=== PATIENT | male | born 1975 | race Caucasian/White ===

== ENCOUNTER 2018-06-18 05:33 | Day surgery (SDC) | payer OTHER ==
[~2018-06-18] VITALS: Ht 180.3 cm; Wt 56.7 kg
--- NOTE | ~2018-06-18 | O ---
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 PROCEDURE: Bilateral extensive lateral tarsorrhaphy. SURGEON: Tony James M.D. HUMAN RESOURCES RECRUITER: None. ANESTHESIA: MAC. COMPLICATIONS: None. 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 He presents today for a bilateral lateral tarsorrhaphy in an extensive fashion in order to limit his ocular surface exposure from the lid retraction and lagophthalmos. Informed consent was obtained to include but not limited to the potential risk for loss of vision, bleeding, infection, failure to improve the problem and the potential need for even further surgery or treatment. DESCRIPTION OF PROCEDURE: The patient was taken to the operating room, where 2% Xylocaine with epinephrine mixed with equal parts of 0.75% Marcaine with Wydase was administered transcutaneously and transconjunctivally to each lateral upper and lower lid and the lateral canthus. The patient was subsequently prepped and draped in the usual sterile fashion. A fine-tip skin marking pen was then used to outline supraciliary and infraciliary incisions laterally bilaterally. The incisions were then made through the skin and orbicularis muscle down to the tarsal plate with a Serenity scissor on each side. The lid margin was then denuded over the lateral one-third of each upper and lower lid, taking the tissue off in one continuous strip. The tarsal plate was then coapted in a yzxz-gist-lglyg fashion to allow an extensive adhesion of the lateral one-third of each lid margin. The 6-0 Vicryl sutures were used to reapproximate this tissue in a serpentine fashion. The skin was closed with interrupted 6-0 plain gut sutures. The adhesions appeared more than adequate and were well closed. [address] [address] OPERATIVE REPORT Name: LETITIA DAVILA Room #: 150-4 [facility]..#: [id number] Admission: 06/18/18 Attend Phys: Tony James MD Discharge: Date of : 79 Report #: [id number] The wounds were then cleaned and dressed with erythromycin ointment, and the patient subsequently transported to the recovery area, having tolerated the procedures well, with no anesthetic or operative complications being noted. By: [id number] Tony James MD /nt
[2018-06-18 08:15] VITALS: BP 136/89
--- NOTE | 2018-06-18 08:46 | EKG ---
[place] [address] [facility] [place] [address] ELECTROCARDIOGRAM REPORT Name: LETITIA DAVILA Room #: 150-4 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 : 1975 Requested By: Rolando Park Order Number: [id number] MD: Jean Carlos Tapia Measurements Intervals [place] Rate: 89 P: 116 ME: 206 QRS: -96 QRSD: 112 T: 66 QT: 367 QTc: 447 Interpretive Statements Sinus rhythm Borderline prolonged ME interval Incomplete right bundle branch block Left anterior hemiblock Artifact in multiple lead(s) No previous ECG available for comparison Electronically Signed On 06-18-2018 8:46:06 INSURANCE OFFICE SUPERVISOR by Jean Carlos Tapia [email or web address] <ELECTRONICALLY SIGNED> By: Jean Carlos Tapia MD, [facility] 06/18/18 0846 9 9 Jean Carlos Tapia MD, [facility] /EPI
--- NOTE | 2018-06-18 16:12 | EKG ---
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
== END 2018-06-18 09:55 | disposition home or self-care (01) ==
LOC: TBA 05:33 → OR 05:33 → TBA 05:34 → OR 09:55
DX: H02.535 Eyelid retraction left lower eyelid (principal); H02.532 Eyelid retraction right lower eyelid; H02.205 Unspecified lagophthalmos left lower eyelid; H02.202 Unspecified lagophthalmos right lower eyelid; H18.9 Unspecified disorder of cornea; G71.11 Myotonic muscular dystrophy; J98.4 Other disorders of lung; Z98.890 Other specified postprocedural states
CPT/HCPCS: 50010; 50101; 50386; 50398; 51636; 56528; 56531; 62110; 62850; 70005